=== PATIENT | male | born 1970 | race Caucasian/White ===

== ENCOUNTER 2017-04-22 08:13 | Day surgery (SDC) | payer BC, OTHER ==
[2017-04-19 10:04] VITALS: BMI 31.0
[~2017-04-22 08:13] MED LIST: LACTATED RINGERS 1,000 ML IV SCH
[2017-04-22 09:01] VITALS: TEMP 97.7
[2017-04-22] MEDS ORDERED: LACTATED RINGERS 1,000 ML IV ONE (09:01)
[2017-04-22] MEDS ORDERED: PROPOFOL 10 MG/ML 20 ML VIAL IV ONE (09:22)
--- NOTE | 2017-04-22 09:48 | P.PCN ---
Date of Procedure: 04/22/17 Preoperative Diagnosis: Postoperative Diagnosis: Procedure(s) Performed: Procedure: Esophagogastroduodenoscopy and biopsy. Preoperative diagnosis: Reflux symptoms requiring ongoing medical therapy. Postoperative diagnosis: 1. Sliding hiatal hernia with LA grade B distal esophagitis. 2. Mild antral gastritis. 3. Multiple biopsies obtained from the duodenum, antrum and esophagus. Preparation and sedation: Was provided by anesthesia. Brief clinical history: The patient is a 46-year-old male with chronic reflux symptoms for the last year and a half requiring medical therapy with recurrence of his symptoms off PPI. No dysphagia, bleeding or other alarm symptoms. This evaluation is to assess for the degree of his esophagitis and rule out complicated reflux disease or other pathology. Procedure: With the patient on his left lateral decubitus position and after informed consent and adequate sedation, I passed the Olympus-GIF 160 video upper endoscope through the cricopharyngeus down the esophagus. GE junction was irregular and it was around 38 cm from the incisors and there was a 1-2 cm sliding hiatal hernia. The distal esophagus showed couple short erosions terminating at the GE junction consistent with LA grade B distal esophagitis. There was no strictures or definite Tan's esophagus. The endoscope was then passed into the stomach which was insufflated with air and inspected in detail including the retroflex view in the cardia. There was some mottling and erythema in the antrum but no ulcers or erosions. Pyloric channel did not show any ulcers. Duodenal bulb, post bulbar area and descending duodenum showed minimal erythema. I obtained multiple biopsies from the duodenum, antrum and esophagus then the endoscope was withdrawn. The patient tolerated the procedure well. Plan: The patient was reassured. Discussed dietary measures and antireflux measures and suggested that he continue acid suppressive therapy. He could be considered for H2 yolande maintenance therapy in the future for longer term maintenance if he remains symptomatic off medications. He will follow up with you as planned. I would be happy to see in the office in follow-up if his symptoms persist or change. Implants: Indications for Procedure: Operative Findings: Description of Procedure:
[2017-04-22 10:03] VITALS: BP 133/90; PULSE 80; RESP 16
== END 2017-04-22 10:29 | disposition home or self-care (01) ==
LOC: ORWHC2ENDO 08:13
DX: K21.0 Gastro-esophageal reflux disease with esophagitis (principal); K29.50 Unspecified chronic gastritis without bleeding; K44.9 Diaphragmatic hernia without obstruction or gangrene; I10 Essential (primary) hypertension; Z79.899 Other long term (current) drug therapy
CPT/HCPCS: 43239; J2704; 88305; 88342

== ENCOUNTER 2023-02-01 18:29 | Emergency (ER) | payer OTHER ==
--- NOTE | 2023-02-01 18:32 | ED ---
General Adult HPI <Sheila Uribe - Last Filed: 02/01/23 18:32> <Madison Back - Last Filed: 02/01/23 23:18> - General Stated complaint: poss DVT lt arm - sent by urgent care Time Seen by Provider: 02/01/23 18:32 - History of Present Illness Initial comments: 52-year-old male presents to the emergency department from urgent care for left arm pain (Sheila Uribe) Patient is a 52-year-old male presenting with chief complaint of left arm pain. Patient has been having pain along the length of the left arm starting from the shoulder and extending down into the fingers for a few weeks. Patient states that the pain started after he started his new job which includes a lot of repetitive motions. No known injury or trauma. Patient compares the pain to that of a "charley horse". No weakness. No numbness or tingling. Patient was seen at urgent care today who advised him to report to the ER as pain may be caused by DVT. He is having no chest pain, difficulty breathing, palpitations, weakness, back pain, neck pain, nausea, vomiting, abdominal pain, diaphoresis. (Madison Back) - Related Data Home Medications Medication Instructions Recorded Confirmed Omeprazole 40 mg PO DAILY 02/01/23 02/01/23 Varenicline [Chantix Continuing 1 mg PO BID 02/01/23 02/01/23 Pack] amLODIPine [Norvasc] 5 mg PO DAILY 02/01/23 02/01/23 Previous Rx's Medication Instructions Recorded Cyclobenzaprine [Flexeril] 10 mg PO HS PRN #20 tab 02/01/23 methylPREDNISolone Dose Pack 4 mg PO DIRECTED #1 packet 02/01/23 [Medrol Dose Pack] Allergies Allergy/AdvReac Type Severity Reaction Status Date / Time No Known Allergies Allergy Verified 02/01/23 22:12 Review of Systems ROS Other: All systems not noted in ROS Statement are negative. <Sheila Uribe - Last Filed: 02/01/23 18:32> ROS Other: All systems not noted in ROS Statement are negative. <Madison Back - Last Filed: 02/01/23 23:18> ROS Statement: Those systems with pertinent positive or pertinent negative responses have been documented in the HPI. Past Medical History Past Medical History: Hypertension History of Any Multi-Drug Resistant Organisms: None Reported Past Surgical History: No Surgical Hx Reported Additional Past Surgical History / Comment(s): Pilonidal cyst removed Past Anesthesia/Blood Transfusion Reactions: No Reported Reaction Past Psychological History: No Psychological Hx Reported Past Alcohol Use History: None Reported, Occasional Additional Past Alcohol Use History / Comment(s): smoked off and on since teen; quit 2015; smoked 1/2 ppd Past Drug Use History: None Reported - Past Family History Mother Family Medical History: Cancer <Sheila Uribe - Last Filed: 02/01/23 18:32> General Exam <Sheila Uribe - Last Filed: 02/01/23 18:32> Limitations: no limitations General appearance: alert, in no apparent distress Head exam: Present: atraumatic, normocephalic, normal inspection Eye exam: Present: normal appearance, EOMI Neck exam: Present: normal inspection, full ROM. Absent: tenderness Respiratory exam: Present: normal lung sounds bilaterally. Absent: respiratory distress, wheezes, rales, rhonchi, stridor Cardiovascular Exam: Present: regular rate, normal rhythm, normal heart sounds. Absent: systolic murmur, diastolic murmur, rubs, gallop, clicks Extremities exam: Present: normal inspection, full ROM, normal capillary refill. Absent: tenderness Neurological exam: Present: alert, oriented X3, CN II-XII intact Psychiatric exam: Present: normal affect, normal mood Skin exam: Present: warm, dry, intact, normal color. Absent: rash <Madison Back - Last Filed: 02/01/23 23:18> - General Exam Comments Initial Comments: Visual Physical Exam Vital signs reviewed General: Well-appearing, nontoxic, no acute distress. Head: Normocephalic, atraumatic Eyes: PERRLA, EOMI ENT: Airway patent Chest: Nonlabored breathing Skin: No visual rash, normal skin tone Neuro: Alert and oriented 3 Musculoskeletal: No gross abnormalities (Sheila Uribe) Course Vital Signs 02/01/23 19:00 Temperature 98 F Pulse Rate 85 Respiratory 18 Rate Blood Pressure 175/99 O2 Sat by Pulse 96 Oximetry Medical Decision Making <Madison Back - Last Filed: 02/01/23 23:18> - Medical Decision Making Was pt. sent in by a medical professional or institution (, PA, PRIVATE EQU[employer]OCIATE, urgent care, hospital, or custodial...) When possible be specific @ -No Did you speak to anyone other than the patient for history (EMS, parent, family, police, friend...)? What history was obtained from this source @ -No Did you review nursing and triage notes (agree or disagree)? Why? @ -I reviewed and agree with nursing and triage notes Were old charts reviewed (outside hosp., previous admission, EMS record, old EKG, old radiological studies, urgent care reports/EKG's, custodial records)? Report findings @ -No old charts were reviewed Differential Diagnosis (chest pain, altered mental status, abdominal pain women, abdominal pain men, vaginal bleeding, weakness, fever, dyspnea, syncope, headache, dizziness, GI bleed, back pain, seizure, CVA, palpatations, mental health, musculoskeletal)? @ -Differential Musculoskeletal Muscular strain, contusion, ligament sprain, fracture, arthritis, septic arthritis, bursitis, cellulitis, muscle spasm, nerve compression, DVT, arterial occlusion, herpes zoster, electrolyte abnormality, tumor.... This is not meant to be in all inclusive list EKG interpreted by me (3pts min.). @ -As above X-rays interpreted by me (1pt min.). @ -None done CT interpreted by me (1pt min.). @ -None done U/S interpreted by me (1pt. min.). @ -Ultrasound was negative for DVT What testing was considered but not performed or refused? (CT, X-rays, U/S, labs)? Why? @ -None What meds were considered but not given or refused? Why? @ -None Did you discuss the management of the patient with other professionals (professionals i.e. , [facility], [employer], lab, RT, psych nurse, director social service, bat boy/girl, teacher, financial administration officer, rn case manager)? Give summary @ -No Was smoking cessation discussed for >3mins.? @ -No Was critical care preformed (if so, how long)? @ -No Were there social determinants of health that impacted care today? How? (Homelessness, low income, unemployed, alcoholism, drug addiction, transportation, low edu. Level, literacy, decrease access to med. care, longterm, rehab)? @ -No Was there de-escalation of care discussed even if they declined (Discuss DNR or withdrawal of care, Hospice)? DNR status @ -No What co-morbidities impacted this encounter? (DM, HTN, Smoking, COPD, CAD, Cancer, CVA, ARF, Chemo, Hep., AIDS, mental health diagnosis, sleep apnea, morbid obesity)? @ -None Was patient admitted / discharged? Hospital course, mention meds given and route, prescriptions, significant lab abnormalities, going to OR and other pertinent info. @ -Patient is a 52-year-old male presenting with chief complaint of left arm pain going on for several weeks. Pain started after beginning a new job with lots of repetitive motions. No recent travel, recent surgeries, use of h ormones, or history of blood clots. Patient is neurovascularly intact. No neck pain. No injury or trauma. Ultrasound is negative for DVT. Patient is educated on overuse injury. He is given Toradol, Norflex, Decadron. He said a prescription for cyclobenzaprine and Medrol Dosepak. Is instructed take ibuprofen and Tylenol home as needed.Follow-up with PCP. Report back to ER with any new or worsening symptoms. Discussed return parameters and answered all questions. Patient conveyed verbal understanding and agreed to the plan. I discussed this case in detail with my attending Dr. Sprague Undiagnosed new problem with uncertain prognosis? @ -No Drug Therapy requiring intensive monitoring for toxicity (Heparin, Nitro, Insulin, Cardizem)? @ -No Were any procedures done? @ -No Diagnosis/symptom? @ -Overuse injury Acute, or Chronic, or Acute on Chronic? @ -Acute Uncomplicated (without systemic symptoms) or Complicated (systemic symptoms)? @ -Uncomplicated Side effects of treatment? @ -No Exacerbation, Progression, or Severe Exacerbation? @ -No Poses a threat to life or bodily function? How? (Chest pain, [place], [place], pneumonia, PE, COPD, DKA, ARF, appy, cholecystitis, CVA, Diverticulitis, Homicidal, Suicidal, threat to staff... and all critical care pts) @ -No (Madison Back) Disposition <Sheila Uribe - Last Filed: 02/01/23 18:32> Is patient prescribed a controlled substance at d/c from ED?: No Time of Disposition: 22:09 <Madison Back - Last Filed: 02/01/23 23:18> Clinical Impression: Overuse injury Disposition: HOME SELF-CARE Condition: Good Instructions (If sedation given, give patient instructions): Muscle Strain (DC) Additional Instructions: Follow-up with PCP. Report back to ER with any new or worsening symptoms. Take Motrin and Tylenol as needed for pain control. Rest, ice the arm as needed. Take medication as prescribed, do not take cyclobenzaprine before driving or operating heavy machinery as it may cause drowsiness. Prescriptions: Cyclobenzaprine [Flexeril] 10 mg PO HS PRN #20 tab PRN Reason: Spasms methylPREDNISolone Dose Pack [Medrol Dose Pack] 4 mg PO DIRECTED #1 packet Referrals: Nonstaff,Physician [REFERRING] - 1-2 days
[2023-02-01 19:03] VITALS: BP 175/99; PULSE 85; RESP 18; TEMP 98
--- NOTE | 2023-02-01 21:53 | US ---
EXAMINATION TYPE: US venous doppler duplex UE LT DATE OF EXAM: 02/01/2023 COMPARISON: NONE CLINICAL INDICATION: Male, 52 years old with history of L arm pain; L arm swelling. No hx of DVT, not on blood thinners SIDE PERFORMED: Left Compression was performed where possible. Left Arm: Negative for DVT IMPRESSION: 1. Left upper extremity ultrasound negative for deep venous thrombosis
[2023-02-01] MEDS ORDERED: DEXAMETHASONE SOD PHOSPHATE 10 MG/ML 1 ML VIAL IM STA (21:58)
[2023-02-01] MEDS ORDERED: KETOROLAC 15 MG/ML 1 ML VIAL IM STA (21:58)
[2023-02-01] MEDS ORDERED: ORPHENADRINE 30 MG/ML 2 ML VIAL IM STA (21:58)
== END 2023-02-01 22:28 | disposition home or self-care (01) ==
LOC: EC 18:29
DX: M70.832 Other soft tissue disorders related to use, overuse and pressure, left forearm (principal); I10 Essential (primary) hypertension; Z79.899 Other long term (current) drug therapy
CPT/HCPCS: 93971; 99283; 96372 ×3; J1100; J2360; J1885